=== PATIENT | female | born 1980 | race Caucasian/White ===

== ENCOUNTER 2018-04-18 21:12 | Emergency (ER) | payer MEDICAID ==
[~2018-04-18] VITALS: Ht 175.3 cm; Wt 70.6 kg
[2018-04-18 21:15] VITALS: BP 125/83
== END 2018-04-18 21:59 | disposition home or self-care (01) ==
LOC: ED 21:53
DX: H66.002 Acute suppurative otitis media without spontaneous rupture of ear drum, left ear (principal); H60.592 Other noninfective acute otitis externa, left ear; H60.12 Cellulitis of left external ear
CPT/HCPCS: 99283